=== PATIENT | female | born 1995 | race Caucasian/White ===

== ENCOUNTER 2019-10-26 06:38 | Emergency (ER) | payer MEDICAID ==
[~2019-10-26] VITALS: Ht 165.1 cm; Wt 62.6 kg
[2019-10-26 06:41] VITALS: Ht 165.1 cm; Wt 62.6 kg
[2019-10-26 07:00] LABS: BASOPHIL % 0.3 % (0-2); PLATELET COUNT 218 x10^3mcL (130-400)
[2019-10-26 07:08] LABS: RED CELL DISTRIBUTION WIDTH 15.7 % (11.5-14.5)
[2019-10-26 07:26] LABS: ALBUMIN 3.6 g/dL (3.4-5.0); CARBON DIOXIDE 24.5 mmol/L (21-32); CHLORIDE SERUM 103 mmol/L (98-107); CREATININE SERUM 0.9 mg/dL (0.6-1.0); GFR1 > 60 mL/min; GLUCOSE SERUM 119 mg/dL (74-106); POTASSIUM SERUM 3.7 mmol/L (3.5-5.1); SODIUM SERUM 136 mmol/L (136-145); TOTAL PROTEIN, SERUM 6.7 g/dL (6.4-8.2)
[2019-10-26 07:27] LABS: ALKALINE PHOSPHATASE 59 U/L (46-116); ALT/SGPT 29 U/L (14-59); AST/SGOT 39 U/L (15-37); BILIRUBIN TOTAL 0.3 mg/dL (0.20-1.00); CALCIUM 7.8 mg/dL (8.5-10.1)
[2019-10-26 09:31] LABS: microscopic required? YES; urine erythrocyte NEGATIVE (NEGATIVE)
[2019-10-26 10:56] VITALS: BP 102/59
== END 2019-10-26 10:56 | disposition home or self-care (01) ==
LOC: ED 06:38
PROVIDERS: Emergency Medicine
DX: S01.81XA Laceration without foreign body of other part of head, initial encounter (principal); W18.30XA Fall on same level, unspecified, initial encounter; Y93.89 Activity, other specified; Y92.89 Other specified places as the place of occurrence of the external cause; Y99.8 Other external cause status
CPT/HCPCS: 90715; J0696; J7030; J7060; Q0092

== ENCOUNTER 2019-10-30 12:10 | Emergency (ER) | payer MEDICAID ==
[~2019-10-30] VITALS: Ht 165.1 cm; Wt 64.0 kg
[2019-10-30 12:43] VITALS: Ht 165.1 cm; Wt 64.0 kg
[2019-10-30 13:17] LABS: PLATELET COUNT 206 x10^3mcL (130-400)
[2019-10-30 13:47] LABS: T3 TOTAL 0.91 ng/mL
[2019-10-30 13:50] LABS: CHLORIDE SERUM 104 mmol/L (98-107); POTASSIUM SERUM 4.6 mmol/L (3.5-5.1); SODIUM SERUM 141 mmol/L (136-145)
[2019-10-30 13:51] LABS: ALBUMIN 3.6 g/dL (3.4-5.0); ALKALINE PHOSPHATASE 64 U/L (46-116); ALT/SGPT 33 U/L (14-59); AST/SGOT 27 U/L (15-37); CALCIUM 8.2 mg/dL (8.5-10.1); CARBON DIOXIDE 30.8 mmol/L (21-32); CREATININE SERUM 0.5 mg/dL (0.6-1.0); GFR1 > 60 mL/min; GLUCOSE SERUM 92 mg/dL (74-106); TOTAL PROTEIN, SERUM 7.1 g/dL (6.4-8.2)
[2019-10-30 13:52] LABS: FREE T4 0.98 ng/dL (0.76-1.46); FREE THYROXINE INDEX 3.1 ug/dL (1.4-4.5); T4(THYROXINE) 9.3 ug/dL (4.7-13.3)
[2019-10-30 14:24] LABS: ATYPICAL LYMPH 1 %; BAND NEUTROPHIL 6 % (0-10); MONOCYTE 15 % (0-7); SEGMENTED NEUTROPHILS 55 % (37-75)
[2019-10-30 14:26] LABS: PLATELET MORPHOLOGY PLATELETS DECREASED; rbc morphology (normal/abnorm) ABNORMAL (NORMAL)
[2019-10-30 15:03] VITALS: BP 108/58
== END 2019-10-30 15:03 | disposition home or self-care (01) ==
LOC: ED 12:10
PROVIDERS: Emergency Medicine
DX: J10.1 Influenza due to other identified influenza virus with other respiratory manifestations (principal); N39.0 Urinary tract infection, site not specified; R53.1 Weakness; S01.81XD Laceration without foreign body of other part of head, subsequent encounter; X58.XXXD Exposure to other specified factors, subsequent encounter
CPT/HCPCS: 36415; 84439; 87804